=== PATIENT | female | born 1940 | race Hispanic/Latino ===

== ENCOUNTER 2023-06-12 05:47 | Emergency (ER) | payer MEDICARE ==
[2023-06-12 07:07] LABS: APPEARANCE,URINE CLEAR (CLEAR); BILIRUBIN,URINE NEGATIVE (NEGATIVE); COLOR,URINE COLORLESS (YELLOW); GLUCOSE, URINE (UA) NEGATIVE (NEGATIVE); KETONES,URINE NEGATIVE (NEGATIVE); LEUKOCYTE ESTERASE ,URINE NEGATIVE Leu/uL (NEGATIVE); NITRATE,URINE NEGATIVE (NEGATIVE); OCCULT BLOOD,URINE NEGATIVE (NEGATIVE); PROTEIN,URINE NEGATIVE (NEGATIVE); UROBILINOGEN,URINE 0.2 mg/dL (0.2-1.0)
[2023-06-12 07:14] LABS: ADD UA MICROSCOPIC NO
[2023-06-12] MEDS ORDERED: POLY17PO4 PO (09:41)
[2023-06-12] MEDS ORDERED: LACT10SO5 PO (09:41)
[2023-06-12 10:15] VITALS: BP 164/70; PULSE 88; RESP 17; O2SAT 99
== END 2023-06-12 10:05 | disposition home or self-care (01) ==
LOC: EDH 05:47 → EDBD 05:47 → EDH 10:05
DX: K59.00 Constipation, unspecified (principal)
CPT/HCPCS: 74018; 81003; 82948